=== PATIENT | male | born 1960 | race Caucasian/White ===

== ENCOUNTER 2020-02-21 07:09 | Outpatient (CLI) | payer BC, SELFPAY ==
--- NOTE | 2020-03-09 22:41 | WPDHOMESLEEP ---
Sleep Study - Home Date of Study: 02/21/20 Ordering Provider: Maura Ventura MD Interpreting Physician: Maura Ventura MD Home Sleep Study Type: Apnea Link Air Height: 1.75 m Weight: 95.254 kg Body Mass Index: 31.0 Neck Circumference (inches): 17.9 Leonard: 6 Reason for Sleep Study Excessive daytime sleepiness Sleep History This 59 yo man has complaints of loud snoring, frequently loud enough that it bothers other people. He has difficulty getting to sleep as well as staying asleep. He does not wake at night with heartburn, belching or coughing. He rarely wakes at night feeling short of breath. He occasionally has trouble sleeping with a cold. He rarely wakes from sleep gasping for breath at night, rarely has breathing problems at night, rarely sweats excessively at night, and rarely notices his heart beating irregularly at night. He rarely falls asleep in the day, never involuntarily, never while driving, and never with physical effort. He rarely has loss of muscle tone with strong emotion, and rarely has trouble in the day due to excessive sleepiness. He does not feel paralyzed on waking or falling asleep. He frequently has vivid dreamlike scenes on waking or falling asleep. He is never afraid to go to sleep. He rarely has nightmares, occasionally remembers his dreams, frequently has racing thoughts as well as feelings of sadness, depression and anxiety. He occasionally has muscular tension, rarely notices parts of his body jerking, never kicks at night. He frequently has crawly and achy feelings in his legs and well as leg pain at night. He never has morning jaw pain, and never grinds his teeth at night. He occasionally is bothered by pain in the day, occasionally is awakened by pain in the night. He frequently wakes feeling stiff in the morning with sore, achy muscles and has pain in the neck and spine. He has headaches, depression and stomach problems, using antacids regularly. He wakes twice at night for unclear reasons, and while awake will go eat a cookie or other sweet snack and use the bathroom, as well take his dogs outside for quick break. He is fully aware of eating at night. Bedtime is 11:00 p.m., taking a half hour to fall asleep, wakes at 8:00 a.m.. On the weekends, he may stay awake an hour later and wake an hour later. He estimates having 8 hours of sleep at night. He is not always refreshed when he wakes. He consistently has a headaches when he wakes in the morning. He works from home starting at 9:00 a.m. He wakes with thirst, not really a dry mouth. He is using Adderall on Saturdays to increase brain functioning as his top notch mental function has fallen off over the years, and Sat is his biggest work day, works as an auto commercial portfolio manager. Little caffeine, tea on occasion. He feels tired in the day, denies taking naps. He does not feel refreshed after taking a nap. He feels better in the morning than other times of day. He rarely has problems with memory or concentration. Habits: Never smoked. No caffeine, no alcohol. [facility] Past Medical History Medical History Chest pain Chronic fatigue, unspecified Constipation, unspecified Depression Dyslipidemia GERD (gastroesophageal reflux disease) HTN (hypertension) Other alf (current) drug therapy Sleep apnea, obstructive Family History Family History Father Hypertension Mother Cerebrovascular accident Grandparent Family history of malignant neoplasm, Onset Age: 63 Social History Social History Smoking status: Never smoker Alcohol intake: never Substance use: never Medications aspirin 81 mg a day Vitamin D2 1250 mg/month mirtazapine 15 mg by mouth daily olmesartan 5 mg by mouth daily rosuvastatin 10 mg daily sumatriptan succinate take one at the start of a headache and repeat as needed, phil
[2020-03-10 00:39] VITALS: BMI 31.0
== END 2020-02-21 07:10 | disposition home or self-care (01) ==
LOC: ANHCSM 07:17
PROVIDERS: PCP Family Medicine; Visit Provider Internal Medicine Critical Care Medicine
DX: G47.33 Obstructive sleep apnea (adult) (pediatric) (principal)
CPT/HCPCS: 95806

== ENCOUNTER 2020-09-19 10:52 | Outpatient (CLI) | payer BC, SELFPAY ==
[2020-09-19 17:19] LABS: Basophils Absolute Auto 0.1 K/mm3 (0.0-0.1); Eosinophils Absolute Auto 0.3 K/mm3 (0-0.3); Eosinophils Percent Auto 4.2 % (0-4.4); Hematocrit 49.3 % (42.0-52.0); Hemoglobin 16.7 g/dL (14.0-18.0); Immature Granulocyte Absolute 0.03 K/mm3 (0.00-0.031); Immature Granulocyte Percent A 0.4 % (0-0.5); Lymphocytes Absolute Auto 2.03 K/mm3 (0.9-3.2); Lymphocytes Percent Auto 26.6 % (18.3-44.2); Mean Corpuscular HGB Conc 33.9 g/dl (32-36); Mean Corpuscular Hemoglobin 31.2 pg (26-34); Mean Platelet Volume 10.3 fl (7.4-10.4); Monocytes Absolute Auto 0.5 K/mm3 (0.1-0.6); Monocytes Percent Auto 6.2 % (2.6-8.5); Neutrophils Absolute Auto 4.7 K/mm3 (1.3-6.7); Neutrophils Percent Auto 61.6 % (45.5-73.1); Platelet Count Result 247 k/mm3 (150-375); Red Blood Count 5.36 M/mm3 (4.6-6.20); Red Cell Distribution Width 12.7 % (11.5-14.5); White Blood Count 7.6 K/mm3 (4.5-10.0)
[2020-09-19 17:24] LABS: Add Urine Microscopic? YES; Amorphous Sediment Urine Moderate; Appearance Urine Cloudy (Clear); Bacteria Urine Trace /hpf; Bilirubin Urine Negative (Negative); Blood Urine Negative (Negative); Color Urine Yellow (Yellow); Glucose Urine UA Negative (Negative); Ketones Urine Negative (Negative); Leukocyte Esterase Ur Negative LEU/UL (Negative); Mucus Urine Rare /lpf; Nitrate Urine Negative (Negative); Protein Urine 1+ mg/dL (Negative); RBC Urine 0-2 /hpf (0-2); Specific Grav Ur 1.019 (1.001-1.035); Urobilinogen Urine Negative mg/dL (<2.0)
[2020-09-19 17:34] LABS: Alanine Aminotransferase 20 U/L (4-50); Albumin Level 4.7 g/dL (3.5-5.1); Alkaline Phosphatase 46 U/L (38-126); Anion Gap 8 mmol/L (8-16); Aspartate Amino Transferase 25 U/L (17-59); Bilirubin,Total 0.4 mg/dL (0.2-1.3); Blood Urea Nitrogen 26 mg/dL (9-20); Calcium 9.2 mg/dL (8.4-10.2); Carbon Dioxide 27 mmol/L (22-30); Chloride 108 mmol/L (98-107); Cholesterol 131 mg/dL (0-200); Estimated Glomerular Filt Rate > 60; Glucose 106 mg/dL (75-110); HDL Direct 60 mg/dL; Potassium 3.7 mmol/L (3.4-5.0); Sodium 143 mmol/L (137-145); Triglycerides 87 mg/dL (<150)
[2020-09-19 17:44] LABS: LDL Cholesterol Direct 63 mg/dL
[2020-09-19 17:53] LABS: Vitamin D 25 Hydroxy 51.1 ng/mL
[2020-09-19 18:05] LABS: Prostate Specific Antigen 0.2 ng/mL (< OR = 4.0)
[2020-09-19 18:39] LABS: Folic Acid 6.3 ng/mL (2.76->20)
[2020-09-24 16:39] LABS: Testosterone Free 52.3 pg/mL (35.0-155.0); Testosterone Total 432 ng/dL (250-1100)
== END 2020-09-19 10:53 | disposition home or self-care (01) ==
PROVIDERS: PCP Family Medicine; Visit Provider Family Medicine
DX: Z00.00 Encounter for general adult medical examination without abnormal findings (principal); F32.9 Major depressive disorder, single episode, unspecified; Z68.32 Body mass index [BMI] 32.0-32.9, adult; R79.89 Other specified abnormal findings of blood chemistry; Z82.49 Family history of ischemic heart disease and other diseases of the circulatory system; E78.5 Hyperlipidemia, unspecified; I10 Essential (primary) hypertension; Z79.899 Other long term (current) drug therapy
CPT/HCPCS: 36415; 80053; 80061; 81001; 82306; 82607; 82746; 84153; 84402; 84403; 84443; 85025; G0103

== ENCOUNTER 2020-09-29 10:44 | Outpatient (CLI) | payer BC, SELFPAY ==
[2020-09-29 19:01] LABS: Total Volume 24 Hour Urine 1000 ml
[2020-09-29 20:05] LABS: Total Protein Urine 24 Hr 140 mg/24hr (28-141); Total Protein Urine Random 14 mg/dL
== END 2020-09-29 10:45 | disposition home or self-care (01) ==
LOC: ANHBWCLAB 10:45
PROVIDERS: PCP Family Medicine; Visit Provider Family Medicine
DX: R80.9 Proteinuria, unspecified (principal)
CPT/HCPCS: 81050; 84156

== ENCOUNTER 2021-09-07 09:40 | Outpatient (CLI) | payer BC, SELFPAY ==
--- NOTE | ~2021-09-07 | XR_ITS ---
EXAMINATION: XR abdomen/kub 1V EXAM DATE: 09/07/2021 09:56 INDICATION: N20.0 - Calculus of kidney TECHNIQUE: Frontal projection(s) of the abdomen for interpretation. There is no prior study for kenya [place]in[place]. FINDINGS: There is expected amount of colonic stool and gas. No small bowel dilation, nonobstructiv e bowel gas pattern. There is approximately 4 mm round density, possible right nephrolithiasis, find ing indicated. Smaller right pelvic calcification. Mild upper lumbar levoscoliosis. There is no org anomegaly suspected. IMPRESSION: Possible right nephrolithiasis. Reviewed, dictated and finalized at location A.
[2021-09-07 18:59] LABS: Hematocrit 45.9 % (42.0-52.0); Hemoglobin 15.6 g/dL (14.0-18.0); Mean Corpuscular Hemoglobin 31.5 pg (26-34); Mean Corpuscular Volume 92.7 fl (80-100); Mean Platelet Volume 10.1 fl (7.4-10.4); Platelet Count Result 245 k/mm3 (150-375); Red Blood Count 4.95 M/mm3 (4.6-6.20); White Blood Count 7.1 K/mm3 (4.5-10.0)
[2021-09-07 19:07] LABS: Alanine Aminotransferase 16 U/L (4-50); Alkaline Phosphatase 44 U/L (38-126); Anion Gap 7 mmol/L (8-16); Aspartate Amino Transferase 24 U/L (17-59); Bilirubin,Total 0.5 mg/dL (0.2-1.3); Blood Urea Nitrogen 22 mg/dL (9-20); Calcium 8.7 mg/dL (8.4-10.2); Carbon Dioxide 25 mmol/L (22-30); Chloride 108 mmol/L (98-107); Cholesterol 138 mg/dL (0-200); Estimated Glomerular Filt Rate > 60; Glucose 102 mg/dL (65-110); HDL Direct 53 mg/dL; Potassium 3.7 mmol/L (3.4-5.0); Sodium 140 mmol/L (137-145); Triglycerides 91 mg/dL (<150)
[2021-09-07 19:22] LABS: Add Urine Microscopic? YES; Appearance Urine Clear (Clear); Bilirubin Urine Negative (Negative); Blood Urine 2+ (Negative); Color Urine Yellow (Yellow); Glucose Urine UA Negative (Negative); Ketones Urine Negative (Negative); LDL Cholesterol Direct 69 mg/dL; Leukocyte Esterase Ur Negative LEU/UL (NEGATIVE); Mucus Urine Rare /lpf; Nitrate Urine Negative (Negative); Protein Urine Negative (Negative); Specific Grav Ur 1.016 (1.001-1.035); Urobilinogen Urine Negative mg/dL (<2.0); WBC Urine 0-3 /hpf (0-3)
[2021-09-07 20:20] LABS: Hemoglobin A1C 5.1 % (<5.7)
== END 2021-09-07 09:41 | disposition home or self-care (01) ==
PROVIDERS: PCP Family Medicine; Visit Provider Family Medicine
DX: E78.5 Hyperlipidemia, unspecified (principal); I10 Essential (primary) hypertension; K21.9 Gastro-esophageal reflux disease without esophagitis; E66.9 Obesity, unspecified; N20.0 Calculus of kidney; M41.9 Scoliosis, unspecified
CPT/HCPCS: 36415; 74018; 80053; 80061; 81001; 82607; 83036; 85027; 87086

== ENCOUNTER 2022-06-09 14:30 | Outpatient (CLI) | payer BC, SELFPAY ==
[2022-06-09 21:04] LABS: Prostate Specific Antigen 0.4 ng/mL (< OR = 4.0)
== END 2022-06-09 14:31 | disposition home or self-care (01) ==
PROVIDERS: PCP Family Medicine; Visit Provider Family Medicine
DX: Z12.5 Encounter for screening for malignant neoplasm of prostate (principal)
CPT/HCPCS: 36415; 84153; G0103

== ENCOUNTER 2022-07-21 00:21 | Day surgery (SDC) | payer BC, SELFPAY ==
[2022-07-07 13:43] VITALS: BMI 31.0
[2022-07-21 08:21] VITALS: BP 124/85; PULSE 73; RESP 16; TEMP 35.8; O2SAT 98
[2022-07-21] MEDS: LACTATED RINGERS 1,000 ML 150 ML IV CONT (08:34)
--- NOTE | 2022-07-21 09:03 | PM.HPGS ---
History of Present Illness History of Present Illness Consent: Risks, benefits, and alternatives have been discussed and questions answered. Patient agrees to proceed with procedure. Chief complaint: neoplasm screening Narrative: Mayank Marrufo is a 62 year old male here for screening colonoscopy, last one 10 years ago Review of Systems Constitutional: Constitutional: Denies headache(s) and Denies weakness Eyes: Eyes: Denies blurry vision ENT: Reports Normal hearing present, Denies headache(s) and Denies neck pain Cardiovascular: Cardiovascular: Denies chest pain and Denies dyspnea Respiratory: Respiratory: Denies dyspnea Gastrointestinal: Gastrointestinal: Reports no additional gastrointestinal complaints Genitourinary: Genitourinary: Denies dysuria Musculoskeletal: Musculoskeletal: Denies neck pain Integumentary/Breasts: Skin/Breast: Denies dry skin Neurologic: Reports Normal hearing present, Denies headache(s) and Denies weakness Psychiatric: Psychiatric: Denies anxiety Endocrine: Endocrine: Denies change in body appearance Hematologic/Lymphatic: Hematologic/Lymphatic: Denies easy bleeding Allergic/Immunologic: Allergic/Immunologic: Denies urticaria PMFSH Past Medical History Medical History Chest pain Chronic fatigue, unspecified Constipation, unspecified Depression Dyslipidemia GERD (gastroesophageal reflux disease) HTN (hypertension) Other care home (current) drug therapy Sleep apnea, obstructive Family History Family History Father Hypertension Mother Cerebrovascular accident Grandparent Family history of malignant neoplasm, Onset Age: 63 Sibling Cerebrovascular accident Social History Social History (Updated 06/09/22 @ 13:54 by Gricelda Tomas MA) Smoking status: Never smoker Alcohol intake: never Substance use: never Lack of Transportation: No Lack of Food: Never True Current Housing: I Have Housing Concerned About Future Housing: No Difficulty Paying Gas/Electric Bills: No Difficulty Paying for Meds: No Currently Unemployed: No Education: Associate Degree Difficulty w/ Childcare or Family Care: No Living arrangements: with family Gender identity (if verbalized by the patient): Male Spiritual care concerns: No Meds Home Medications and Allergies Home Medications Medication Instructions Recorded Confirmed Type fluticasone propionate 50 1 spray intranasal Q12H #16 grams 08/23/21 07/21/22 Rx mcg/actuation nasal spray,suspension (Flonase Allergy Relief) sumatriptan succinate 100 mg tablet See Rx Instructions PO .COMPLEX 09/13/21 07/21/22 Rx #90 tabs ergocalciferol (vitamin D2) 1,250 1,250 mcg PO MONTHLY #10 caps 12/02/21 07/21/22 Rx mcg (50,000 unit) capsule hydroxyzine HCl 25 mg tablet 25 mg PO TID PRN nausea and 02/15/22 07/21/22 Rx vomiting #270 tabs rosuvastatin 10 mg tablet 10 mg PO DAILY #90 tabs 02/15/22 07/21/22 Rx topiramate 25 mg tablet 25 mg PO BID #180 tabs 03/05/22 07/21/22 Rx omeprazole 20 mg capsule,delayed 20 mg PO DAILY #90 caps 04/13/22 07/21/22 Rx release aspirin 81 mg tablet,delayed 81 mg PO DAILY #90 tabs 04/19/22 07/21/22 Rx release (Adult Low Dose Aspirin) mirtazapine 15 mg tablet 15 mg PO DAILY #90 tabs 05/17/22 07/21/22 Rx tamsulosin 0.4 mg capsule 0.4 mg PO DAILY #90 caps 05/17/22 07/21/22 Rx polyethylene glycol 3350 17 17 g PO DAILY #510 grams 06/09/22 07/21/22 Rx gram/dose oral powder (Miralax) Allergies Allergy/AdvReac Type Severity Reaction Status Date / Time No Known Allergies Allergy Verified 07/21/22 08:16 Vital Signs Vital Signs - 24 hr 07/21/22 08:21 Temperature 96.5 F L Pulse Rate 73 Respiratory Rate 16 Blood Pressure 124/85 Pulse Oximetry 98 Oxygen Delivery Room Air Exam Const: General: comfortable and no acute distress LULU
[2022-07-21 09:21] VITALS: BP 103/71; PULSE 71; RESP 34; O2SAT 94
[2022-07-21 09:31] VITALS: BP 108/56; PULSE 67; RESP 28; O2SAT 95
[2022-07-21 09:41] VITALS: BP 107/74; PULSE 68; RESP 24; O2SAT 99
== END 2022-07-21 10:00 | disposition home or self-care (01) ==
PROVIDERS: PCP Family Medicine; Visit Provider Internal Medicine Gastroenterology
PROC: 0DJD8ZZ Inspection of Lower Intestinal Tract, Via Natural or Artificial Opening Endoscopic (ICD-10-PCS; CPT 45378; principal; 2022-07-21 09:30)
DX: Z12.11 Encounter for screening for malignant neoplasm of colon (principal); K63.89 Other specified diseases of intestine; K64.8 Other hemorrhoids; I10 Essential (primary) hypertension; E78.5 Hyperlipidemia, unspecified; K21.9 Gastro-esophageal reflux disease without esophagitis; G47.33 Obstructive sleep apnea (adult) (pediatric); F32.A Depression, unspecified; Z79.82 Long term (current) use of aspirin
CPT/HCPCS: 45378; J2704; J7120

== ENCOUNTER 2024-01-23 08:37 | Outpatient (CLI) | payer BC, SELFPAY ==
[2024-01-23 18:24] LABS: Hematocrit 48.9 % (42.0-52.0); Hemoglobin 15.9 g/dL (14.0-18.0); Mean Corpuscular HGB Conc 32.5 g/dl (32-36); Mean Corpuscular Hemoglobin 31.5 pg (26-34); Mean Platelet Volume 10.7 fl (7.4-10.4); Platelet Count Result 219 k/mm3 (150-375); Red Blood Count 5.04 M/mm3 (4.6-6.20); Red Cell Distribution Width 13.8 % (11.5-14.5); White Blood Count 8.1 K/mm3 (4.5-10.0)
[2024-01-23 19:05] LABS: Alanine Aminotransferase 17 U/L (6-50); Albumin Level 4.3 g/dL (3.5-5.1); Alkaline Phosphatase 44 U/L (38-126); Anion Gap 9 mmol/L (4-12); Aspartate Amino Transferase 61 U/L (17-59); Bilirubin,Total 0.5 mg/dL (0.2-1.3); Blood Urea Nitrogen 26 mg/dL (9-20); Calcium 9.5 mg/dL (8.4-10.2); Carbon Dioxide 28 mmol/L (22-30); Chloride 107 mmol/L (98-107); Cholesterol 161 mg/dL (0-200); Estimated Glomerular Filt Rate 56; Glucose 98 mg/dL (65-110); HDL Direct 46 mg/dL; Potassium 3.9 mmol/L (3.4-5.0); Sodium 144 mmol/L (137-145); Triglycerides 185 mg/dL (<150)
[2024-01-23 19:21] LABS: LDL Cholesterol Direct 85 mg/dL
[2024-01-23 20:27] LABS: Vitamin D 25 Hydroxy 34.4 ng/mL
[2024-01-27 16:14] LABS: Testosterone Free 57.7 pg/mL (35.0-155.0); Testosterone Total 503 ng/dL (250-1100)
== END 2024-01-23 08:38 | disposition home or self-care (01) ==
LOC: ANHBWCLAB 08:38
PROVIDERS: PCP Family Medicine; Visit Provider Family Medicine
DX: E66.9 Obesity, unspecified (principal); E78.5 Hyperlipidemia, unspecified; F32.9 Major depressive disorder, single episode, unspecified; G47.10 Hypersomnia, unspecified; G47.30 Sleep apnea, unspecified; I10 Essential (primary) hypertension; K21.9 Gastro-esophageal reflux disease without esophagitis; N40.0 Benign prostatic hyperplasia without lower urinary tract symptoms; Z00.00 Encounter for general adult medical examination without abnormal findings; Z12.5 Encounter for screening for malignant neoplasm of prostate; R79.89 Other specified abnormal findings of blood chemistry; G47.33 Obstructive sleep apnea (adult) (pediatric); R53.83 Other fatigue
CPT/HCPCS: 36415; 80053; 80061; 82306; 84153; 84402; 84403; 85027; G0103

== ENCOUNTER 2024-09-13 08:05 | Outpatient (CLI) | payer BC, SELFPAY ==
--- OUTSIDE RECORDS SUMMARY | 2024-09-13 08:24 | XMS_ITS | Clinical Summary ---
Author Organization [facility] Address [address] [place] [id number] Care Team Providers Care Claims Collector Name Role Phone Unavailable Primary Care Provider Unavailabl e Social History Tobacco Use Types Packs/Day Years Used Date Smoking Tobacco: Never Assessed Sex and Gender Information Value Date Recorded Sex Assigned at Not on file Legal Sex Male 5:07 PM CDT Gender Identity Not on file Sexual Orientation Not on file Plan of Treatment Health Maintenance Due Date Last Done Comments Colorectal Cancer Screening Colonoscopy (10 Years) 1962 Annual Physical 1965 Hepatitis C 1980 DTaP, Tdap and Td Vaccines ( 1 - Tdap) 1981 Zoster Vaccines (1 of 2) 2012 COVID-19 Vaccine ( - 2023-2 5 season) 2024 RSV Immunization or 60+ Years (1 - 1-dose 75+ series) 2037 Meningococcal B Vaccine Aged Out No l onger eligible based on patient's age to complete this topic Meningococcal Vaccine Aged Out No bennie segundo eligible based on patient's age to complete this topic Pneumococcal Vaccine: Pediat rics (0 to 5 Years) and At-Risk Patients (6 to 64 Years) Aged Out No longer eligible b ased on patient's age to complete this topic RSV Immunizations Under 20 Months Aged Out No longer eligible based on patient's age to complete this topic
--- OUTSIDE RECORDS SUMMARY | 2024-09-13 08:24 | XMS_ITS | Clinical Summary ---
Author Organization [facility] Address [address] [place] [address] Care Team Providers Care Consumer Product Advisor Name Role Phone Jing Sprague MD Primary Care Provider Allergies No known active allergies Medications mirtazapine (REMERON) 30 mg tablet TAKE 1 TABLET (30 MG) BY MOUTH EVERY DAY BEFORE BEDTIME 90 0 2 Active omeprazole (PriLOSEC) 20 mg capsule take 1 capsule by oral route every day before a meal 90 0 4 Active PARoxetine (PAXIL) 20 mg tablet take 1 tablet (20MG) by oral route every day 90 3 2 Active SUMAtriptan (IMITREX) 100 mg tablet take 1 tablet by oral route once with fluids as early as possible after the onset of a migraine attack 54 3 2 Active buPROPion XL (WELLBUTRIN XL) 300 mg 24 hr tablet TAKE 1 TABLET (300 MG) BY MOUTH EVERY DAY 90 0 2 Active olmesartan (BENICAR) 5 mg tablet take 1 Tablet by oral route every day 0 0 6 Active tamsulosin (FLOMAX) 0.4 mg capsule,extende d release 24hr take 1 capsule by oral route every day 1/2 hour following the same meal each day 0 0 6 Active rosuvastatin (CRESTOR) 10 mg tablet take 1 tablet by oral route every day 0 0 6 Active Active Problems Problem Noted Date Diagnosed Date Conductive hearing loss of l eft ear with unrestricted hearing of right ear 12/20/2018 Assessment & Plan (12/20/2018 3:56 PM CDT): Call if hearing does not return to normal in the next few days for Audiogram Tylenol for pain Avoid ear cleaning techniques Avoid water to ears Impacted cerumen of left ear 12/20/2018 Assessment & Plan (12/20/2018 3:56 PM CDT): Call if hearing does not return to normal in the next few days for Audiogram Tylenol for pain Avoid ear cleaning techniques Avoid water to ears Shoulder pain 10/29/2015 Overview (09/10/2016): Shoulder pain Anxiety 10/20/2013 Overview (09/08/2016): Anxiety Depression 10/20/2013 Overview (09/09/2016): Depression Migraine 10/20/2013 Overview (09/11/2016): Migraine headache Immunizations Immunization Administration Dates Next Due Tdap 08/03/2006 Surgical History Surgery Date Site/Laterality Comments TONSILLECTOMY 1981 Tonsillectomy VASECTOMY Vasectomy Family History Medical History Relation Name Comments Other Brother DOWN SYND; Coronary artery disease Father Javier nary artery disease, premature; Cause of : Coronary artery disease, premature Hyperlipidemia Father Hyperlipidemi a; Hypertension Father Hypertension; Alcohol abuse Maternal Grandfather Alcoho lism; Brain cancer Maternal Grandfather Cancer -brain tumor; Coronary artery disease Maternal Grandfather Coronary artery disease, premature; Diabetes type II Maternal Grandfather Emilia betes -Type 2; Coronary artery disease Maternal Grandmother Coronary artery disease; Diabetes type II Maternal Grandmother Emilia betes -Type 2; Coronary artery disease Paternal Grandfather Coronary artery disease, premature; Alzheimer's disease Paternal Grandmother Alzheimer's Disease; Relation Name Status Comments Brother Father (Age 43) Maternal Grandfather Maternal Grandmother Paternal Grandfather Paternal Grandmother Social History Tobacco Use Types Packs/Day Years Used Date Smoking Tobacco: Never Smokeless Tobacco: Never Alcohol Use Standard Drinks/Week Comments No 0 (1 standard drink = 0.6 oz pur e alcohol) Sex and Gender Information Value Date Recorded Sex Assigned at Not on file 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 Gender Identity Not on file Sexual Orientation Not on file Obstetrics History Last Filed Vital Signs Vital Sign Reading Time Taken Comments Blood Pressure 116/82 12/19/2018 3:09 PM CDT Pulse 68 12/19/2018 3:09 PM CDT Temperature 36.5 C (97.7 F) 12/19/2018 3:09 PM CDT Respiratory Rate - - Oxygen Saturation - - Inhaled Oxygen Concentration - - Weight 100.2 kg (220 lb 12.8 oz) 12/19/2018 3:09 PM CDT Height 175.3 cm (5' 9 ) 12/19/2018 3:09 PM CDT Body Mass Index 32.61 12/19/2018 3:09 PM CDT Plan of Treatment Not on file Insurance [employer] ACCESS Care Teams Consumer Product Advisor Relationship Specialty Start Date End Date Jing Sprague MD PCP - General 08/02/16
--- OUTSIDE RECORDS SUMMARY | 2024-09-13 08:24 | XMS_ITS | Clinical Summary ---
Author Organization [facility] Address [address] [place] [address] Phone Care Team Providers Care Under Trimmer Name Role Phone Jing Jane MD Primary Care Provider [phone] Allergies No known active allergies Medications amphetamine-dext roamphetamine (ADDERALL) 10 MG Tablet 11/14/2017 Active aspirin EC 81 MG Tablet Delayed Response 11/08/2017 Active buPROPion (WELLBUTRIN) 300 MG TABLET SR 24 HR XL tablet 09/06/2017 Active ergocalciferol (VITAMIN D) 03778 UNIT Capsule 10/26/2017 Active hydrOXYzine (ATARAX) 25 MG Tablet 10/20/2017 Active mirtazapine (REMERON) 15 MG Tablet 10/14/2017 Active olmesartan (BENICAR) 5 MG Tablet 10/04/2017 Active PARoxetine (PAXIL) 10 MG Tablet 09/06/2017 Active rosuvastatin (CRESTOR) 10 MG Tablet 09/26/2017 Active SUMAtriptan (IMITREX) 100 MG Tablet 09/06/2017 Active tamsulosin (FLOMAX) 0.4 MG Capsule 08/29/2017 Active topiramate (TOPAMAX) 25 MG Tablet 09/15/2017 Active Acetaminophen-Ca ffeine (EXCEDRIN TENSION HEADACHE PO) Take by mouth. Active Omeprazole 20 MG Tablet Delayed Response Take by mouth. Active Family History Medical History Relation Name Comments Heart Attack Father Kidney Stones Mother Relation Name Status Comments Father Mother Social History Tobacco Use Types Packs/Day Years Used Date Smoking Tobacco: Never Smokeless Tobacco: Never Alcohol Use Standard Drinks/Week Comments No 0 (1 standard drink = 0.6 oz pur e alcohol) Sexually Active Control Partners Comments Never Sex and Gender Information Value Date Recorded Sex Assigned at Not on file Legal Sex Male 8:09 PM CDT Gender Identity Not on file Sexual Orientation Not on file Last Filed Vital Signs Vital Sign Reading Time Taken Comments Blood Pressure 114/78 12/21/2017 8:43 AM CDT Pulse 63 12/21/2017 8:43 AM CDT Temperature 36.7 C (98.1 F) 12/21/2017 8:43 AM CDT Respiratory Rate 16 12/21/2017 8:43 AM CDT Oxygen Saturation 97% 12/21/2017 8:43 AM CDT Inhaled Oxygen Concentration - - Weight 95.3 kg (210 lb) 12/21/2017 8:43 AM CDT Height 175.3 cm (5' 9 ) 12/21/2017 8:43 AM CDT Body Mass Index 31.01 12/21/2017 8:43 AM CDT Plan of Treatment Health Maintenance Due Date Last Done Comments Hepatitis C Virus (HCV) Screening 1960 TdaP Immunization 1962 Colonoscopy 2007 Colorectal Cancer Screening 2007 Cologuard 2012 Immunochemical Fecal Occult Blood 2012 Pneumococcal Immunization (5 0+ years) (1 of 1 - PCV) 2012 Zoster Immunization (1 of 2) 2012 Influenza Immunization (#1) 2024 SARS-COV-2 Immunization (2 - season) 2024 12/16/2020 Respiratory Syncytial Virus (RSV) Immunization (Adult) (1 - 1-dose 75+ series) 2037 Hepatitis B Immunization Aged Out No longer eligible based on patient's age to complete this topic Meningococcal Immunization (ACWY) Aged Out No longer eligible based on patient's age to complete this topic Rotavirus Immunization Aged Out No lo nger eligible based on patient's age to complete this topic [place] [address] [place] [address] Care Teams Under Trimmer Relationship Specialty Start Date End Date Jing Jane MD PCP - General Internal Medicine 11/14/17
--- OUTSIDE RECORDS SUMMARY | 2024-09-13 08:24 | XMS_ITS | Referral Summary ---
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
== END 2024-09-13 08:06 | disposition home or self-care (01) ==
PROVIDERS: PCP Family Medicine; Visit Provider Otolaryngology Otolaryngology/Facial Plastic Surgery
DX: H90.3 Sensorineural hearing loss, bilateral (principal); H93.8X1 Other specified disorders of right ear; H93.292 Other abnormal auditory perceptions, left ear; H93.19 Tinnitus, unspecified ear; T78.40XA Allergy, unspecified, initial encounter
CPT/HCPCS: 92557; 92567

== ENCOUNTER 2025-04-02 08:43 | Outpatient (CLI) | payer BC, SELFPAY ==
--- OUTSIDE RECORDS SUMMARY | 2025-04-02 09:10 | XMS_ITS | Clinical Summary ---
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
--- OUTSIDE RECORDS SUMMARY | 2025-04-02 09:10 | XMS_ITS | Clinical Summary ---
Author Organization [facility] Address [address] [place] [address] Phone Care Team Providers Care Capacity Planning Engineer Name Role Phone Jing Jane MD Primary Care Provider [phone]- [phone] Allergies No known active allergies Medications amphetamine-dext roamphetamine (ADDERALL) 10 MG Tablet 11/14/2017 Active aspirin EC 81 MG Tablet Delayed Response 11/08/2017 Active buPROPion (WELLBUTRIN) 300 MG TABLET SR 24 HR XL tablet 09/06/2017 Active ergocalciferol (VITAMIN D) 14042 UNIT Capsule 10/26/2017 Active hydrOXYzine (ATARAX) 25 [...] 8:43 AM CDT Height 175.3 cm (5' 9) 12/21/2017 8:43 AM CDT Body Mass Index 31.01 12/21/2017 8:43 AM CDT Plan of Treatment Health Maintenance Due Date Last Done Comments Hepatitis C Virus (HCV) Screening 1960 TdaP Immunization 1962 Cologuard 2007 Colonoscopy 2007 Colorectal Cancer Screening 2007 Immunochemical Fecal Occult Blood 2007 Pneumococcal Immunization (5 0+ years) (1 of 1 - PCV) 2012 Zoster Immunization (1 of 2) 2012 Influenza Immunization (#1) 2025 SARS-COV-2 Immunization ( - season) 2025 12/16/2020 Respiratory Syncytial Virus (RSV) Immunization (Adult) (1 - 1-dose 75+ series) 2037 Hepatitis B Immunization Aged Out No longer eligible based on patient's age to complete this topic Human Papillomavirus (HPV) Immunization Aged Out No longer eligible b ased on patient's age to complete this topic Meningococcal Immunization (ACWY) Aged Out No longer eligible based on patient's age to complete this topic Rotavirus Immunization Aged Out No lo nger eligible based on patient's age to complete this topic Insurance [facility] Care Teams Capacity Planning Engineer Relationship Specialty Start Date End Date Jing Jane MD PCP - General Internal Medicine 11/14/17
--- OUTSIDE RECORDS SUMMARY | 2025-04-02 09:10 | XMS_ITS | Clinical Summary ---
Author Organization [facility] Address [address] [place] [address] Care Team Providers Care Soda Tester Name Role Phone Unavailable Primary Care Provider [...] Td Vaccines ( 1 - Tdap) 1981 Pneumococcal Vaccine: 50+ Ye ars (1 of 1 - PCV) 2012 Zoster Vaccines (1 of 2) 2012 COVID-19 Vaccine ( - 2024-2 6 season) 2025 Influenza Adult (#1) 2025 RSV Immunization or 60+ Years (1 - 1-dose 75+ series) 2037 Hepatitis A Vaccines Aged Out No long er eligible based on patient's age to complete this topic Meningococcal B Vaccine Aged Out No l onger eligible based on patient's age to complete this topic Meningococcal Vaccine Aged Out No bennie segundo eligible based on patient's age to complete this topic RSV Immunizations Under 20 Months Aged Out No longer eligible based on patient's age to complete this topic
--- NOTE | 2025-04-17 12:49 | WPDHOMESLEEP ---
Sleep Study - Home Unattended Date of Study: 04/02/25 Ordering Provider: Tree Manley MD Interpreting Provider: Susy Kemp, DO Home Sleep Study Type: Watch PAT Height: 1.75 m Weight: 90.718 kg Body Mass Index: 29.5 Neck Circumference (inches): 18 [place]: 5 Reason for Sleep Study Trouble falling and staying asleep Sleep History The patient is a 64-year-old male that had a sleep study ordered his primary care physician for evaluation of sleep apnea. The patient admits to having trouble falling and staying asleep. He denies snoring loudly. He does have interruptions in breathing while asleep. He denies choking or gasping at night. He denies having trouble breathing on his back. He does have morning headaches. He does have a dry or sore mouth /throat in the morning. He denies nocturnal heartburn. He urinates twice throughout the night. He does not have difficulty falling back asleep if he wakes up throughout the night. He does use hypnotics or sedatives. He denies feeling anxious about sleep. He does feel tired or sleepy during the day. He does feel tired in the morning. He denies having the urge to fall asleep during the day. He denies feeling drowsy while driving. He denies sleep paralysis, cataplexy and hypnagogic/hypnopompic hallucinations. He denies clenching or grinding his teeth. He denies kicking or jerking his legs excessively. He does have a restless feeling in his legs that causes an urge to move his legs. It does get better with activity. It does not get worse with rest. It occurs in the evening but does not cause a disturbance in his sleep. He goes to bed at 11:00 p.m. on work days and at midnight on his days off. It takes him 1 hour to fall asleep. He gets 7-1/2 hours of sleep on work days and 8 hours on his days. His sleep is a little more restorative on his days off. He does take planned naps in the afternoon that are less than an hour. The naps are not restorative. He denies dream enactment behavior. He denies sleep walking. He denies consuming any caffeinated beverages throughout the day. He denies tobacco and alcohol use. He exercises 3-4 nights per week. [facility] Past Medical History Medical History Allergic rhinitis Chronic dysfunction of both eustachian tubes Conductive hearing loss, unilateral, right ear with restricted hearing on the contralateral side Bilateral impacted cerumen Bilateral hearing loss Chest pain Constipation, unspecified Depression Dyslipidemia Chronic fatigue, unspecified GERD (gastroesophageal reflux disease) HTN (hypertension) Other [facility] (current) drug therapy Sleep apnea, obstructive Family History Family History Father Hypertension Mother Cerebrovascular accident Grandparent Family history of malignant neoplasm, Onset Age: 63 Sibling Cerebrovascular accident Social History Social History Social History: Caffeine-tea Smoking status: Never smoker Alcohol intake: never Substance use: never Substance use type: does not use Do You Feel Safe in your Home?: Yes Lack of Transportation: No Lack of Food: Never True Current Housing: I Have Housing Concerned About Future Housing: No Difficulty Paying Gas/Electric Bills: No Difficulty Paying for Meds: No Currently Unemployed: No Education: Associate Degree Difficulty w/ Childcare or Family Care: No Living arrangements: with family Gender identity (if verbalized by the patient): Male Spiritual care concerns: No Agree to blood products: Yes Medications Home Medications ?Medication ?Instructions ?Recorded ?Confirmed ?Type topiramate 50 mg tablet See Rx Instructions .Route 05/29/24 09/28/24 Rx .COMPLEX #180 tabs fluticasone propionate 50 2 spray intranasal DAILY #48 mL 05/31/24 09/28/24 Rx mcg/actuation nasal spray,suspension (Flonase Allergy Relief) fluticasone propionate 50 1 spray intranasal DAILY 30 days 09/28/24 09/28/24 Rx mcg/actuation nasal #16 grams spray,suspension methylprednisolone 4 mg tablets in See Rx Instructions PO PER PKG DIR 10/03/24 Rx a dose pack (Medrol (Arsen)) #21 ea mirtazapine 15 mg tablet 15 mg PO DAILY #90 tabs 10/30/24 Rx sumatriptan succinate 100 mg tablet See Rx Instructions .Route 01/14/25 Rx .COMPLEX #60 tabs hydroxyzine HCl 25 mg tablet 25 mg PO TID PRN nausea and 01/28/25 Rx vomiting #270 tabs rosuvastatin 10 mg tablet 10 mg PO DAILY #90 tabs 01/28/25 Rx tamsulosin 0.4 mg capsule See Rx Instructions .Route 02/22/25 Rx .COMPLEX #180 caps doxepin 25 mg capsule See Rx Instructions .Route 03/21/25 Rx .COMPLEX #90 caps polyethylene glycol 3350 17 See Rx Instructions .Route 03/21/25 Rx gram/dose oral powder .COMPLEX #714 grams aspirin 81 mg tablet,delayed 81 mg PO DAILY #90 tabs 04/01/25 Rx release (Adult Low Dose Aspirin) ergocalciferol (vitamin D2) 1,250 See Rx Instructions .Route 04/01/25 Rx mcg (50,000 unit) capsule .COMPLEX #13 caps omeprazole 20 mg capsule,delayed See Rx Instructions .Route 04/01/25 Rx release .COMPLEX #90 caps Sleep Procedure The sleep study was completed using [employer] a technically adequate device with seven channels: peripheral arterial tone, actigraphy, body position, snore, respiratory movement, pulse oximetry, sleep staging, and heart rate. Prior to using the device, the patient received verbal and written instructions for its application and was provided with the help desk phone number for additional telephonic instruction with 24-hour availability of qualified personnel to answer questions. The study was scored using [facility] guidelines. Sleep Architecture The total recording time is 9 hrs, 59 min. The total sleep time is 8 hrs, 11 min. Sleep latency is 29 minutes. REM latency is 190 minutes. The patient had 12 episodes of waking. Sleep architecture shows 5.7% deep sleep, 80.8% light sleep, and (as % Total Sleep Time) showed NREM (Light 80.8%; Deep 5.7%), and a 13.5% stage REM. The patient spent 92.2% of total sleep time in the supine position. Sleep efficiency was 81.97. Respiratory Analysis The overall AHI (pAHI 4%:) is 3.3. The overall AHI (pAHI 3%:) is 5.1. The central AHI is 0.0. The AHI was 3.8 in NREM and 13.6 in REM sleep. The AHI was 5.0 in Supine and 6.3 in Non-supine sleep. Percent of Chris Osei respirations is 0.0. Oximetry Data The oxygen desaturation index (JAMAL 4%:) is 2.2. The mean saturation is 94%, and the lowest saturation is 88%. Time spent with saturation < 88% is 0.0 minutes. Snoring Profile Snoring average intensity is 42 dB. The patient snored above 45 decibels for 46.4 minutes, 9.4% of sleep time. Cardiac Profile The average pulse rate is 72 beats per minutes. The lowest pulse rate is 58 bpm. The highest pulse rate reported is 101 bpm. Atrial fibrillation was not detected. Premature beats occur <0.1 per minute. Assessment and Plan Assessment and Plan (1) Sleep apnea, obstructive: Code(s): G47.33 - Obstructive sleep apnea (adult) (pediatric) Status: Acute Assessment and Plan: Per AASM guidelines (pAHI 3%), the patient had an overall AHI of 5.1 with desaturation down to 88%. This is consistent with mild sleep apnea. Due to the patient's insomnia, he qualifies for treatment. I recommend that the patient be prescribed AutoPAP 5-15 cm H2O, CPAP mask/filters/tubing and heated humidity. A mandibular advancement device is also an acceptable treatment option. This should be used with all episodes of sleep.? Compliance should be reviewed within 31-90 days of starting therapy for usage greater than 4 hours per night greater than 70% of the nights. The patient should be asked about symptoms such as?excessive daytime sleepiness, quality of sleep, decreased nocturia, increased?mental functioning such as memory, mood, and concentration. Per CMS guidelines (pAHI 4%), the patient had an overall AHI of 3.3 with desaturation down to 88%. This is not consistent with sleep-disordered breathing. If the patient's insurance company only recognizes CMS guidelines (4%), the patient does not qualify for treatment. I would then recommend that the patient have a split study with the use of a hypnotic to ensure we obtain enough sleep data. Data The data obtained during this sleep study is adequate for interpretation. Certification This sleep study has been reviewed by a board certified sleep medicine physician.
[2025-04-17 12:55] VITALS: BMI 29.5
== END 2025-04-11 12:28 | disposition home or self-care (01) ==
PROVIDERS: PCP Family Medicine; Visit Provider Family Medicine
DX: G47.00 Insomnia, unspecified (principal); G43.909 Migraine, unspecified, not intractable, without status migrainosus; Z00.00 Encounter for general adult medical examination without abnormal findings; I10 Essential (primary) hypertension; E78.5 Hyperlipidemia, unspecified; Z79.899 Other long term (current) drug therapy; F32.9 Major depressive disorder, single episode, unspecified
CPT/HCPCS: 95800